=== PATIENT | female | born 1995 | race Caucasian/White ===

== ENCOUNTER → 2017-10-06 | Outpatient (CLI) | payer BC, OTHER ==
[~2017-10-06] MED LIST: [UNRECOGNIZED DRUG - CODE] PO
--- NOTE | 2017-10-06 12:52 | MAMMOGRAPHY REPORT ---
ULTRASOUND OF BOTH BREASTS: 10/06/2017 CLINICAL HISTORY: 22-year-old woman presents with a 1-1/2 week history of a palpable lump in the righ t upper outer quadrant. No skin erythema or thickening. No nipple discharge. No family history of breast cancer. COMPARISON: No prior exams were available for comparison. FINDINGS: Palpation was performed over the lump pointed out by the patient. There is a 2 cm rubbery mobile mass in the right upper outer quadrant approximate 10:00 axis, 7 cm from the nipple, correlati ng is palpated. Targeted ultrasound was performed over this lump and there is a multilobulated paral lel hypoechoic solid mass in the area of concern, measuring 1.9 x 1.3 x 1.9 cm. This most likely rep resents a fibroadenoma but definitive characterization with tissue sampling is recommended given the solid nature. IMPRESSION: ACR BI-RADS CATEGORY 4: SUSPICIOUS - FOLLOW-UP RECOMMENDED 1. Ultrasound-guided core biopsy is recommended for a solid palpable lobulated 1.9 cm mass in the 10 :00 right breast. These results and recommendations were discussed with the patient at the time of the exam. She tenta tively scheduled the biopsy prior to leaving our department. Chantelle Avina M.D. ay/:10/06/2017 09:55:12 Legal Executive: Dr. Chantelle Avina, [facility] letter sent: Abnormal 4/5 BI-RADS Code: ACR BI-RADS Category 4: Suspicious
== END | disposition home or self-care (01) ==
LOC: C.MAMM 09:33
PROVIDERS: ATTEND Physician Assistant Medical
DX: N63.11 Unspecified lump in the right breast, upper outer quadrant (principal)